=== PATIENT | female | born 1940 | race Caucasian/White ===

== ENCOUNTER 2016-11-14 12:18 | Day surgery (SDC) | payer MEDICARE, OTHER ==
[~2016-11-14 12:18] MED LIST: Lactated Ringers 1,000 ML IV SCH; Sodium Chloride 0.9% 10 ML Syringe FLUSH PRN; Sodium Chloride 0.9% 2.5 ML Syringe FLUSH PRN
--- NOTE | 2016-11-14 14:00 | PCM.PREANE ---
Preanesthetic Assessment - Anesthesia/Transfusion/Family Hx Anesthesia History: Prior Anesthesia Without Reaction Family History of Anesthesia Reaction: No Transfusion History: No Prior Transfusion(s) - Review of Systems General: No Symptoms Pulmonary: No Symptoms Cardiovascular: No Symptoms Neurological: No Symptoms Other: Reports: None - Physical Assessment NPO Status Date: 11/13/16 O2 Sat by Pulse Oximetry: 97 Respiratory Rate: 16 Vital Signs: Last Vital Signs Temp 36.6 C 11/14/16 13:27 Pulse 63 11/14/16 13:27 Resp 16 11/14/16 13:27 BP 176/84 H 11/14/16 13:27 Pulse Ox 97 11/14/16 13:27 Height: 1.6 m Weight: 57.606 kg ASA Class: 3 Mental Status: Alert & Oriented x3 Airway Class: Mallampati = 2 Dentition: Reports: Dentures, Partial ROM/Head Extension: Full Lungs: Clear to Auscultation, Normal Respiratory Effort Cardiovascular: Regular Rate, Regular Rhythm - Allergies Allergies/Adverse Reactions: Allergies Allergy/AdvReac Type Severity Reaction Status Date / Time No Known Allergies Allergy Verified 12/30/15 00:34 - Acknowledgements Anesthesia Type Planned: MAC Pt an Appropriate Candidate for the Planned Anesthesia: Yes Alternatives and Risks of Anesthesia Discussed w Pt/Guardian: Yes Pt/Guardian Understands and Agrees with Anesthesia Plan: Yes Additional Comments: has CAD, s/p coronary and subclavian art stents placed in 2003, stopped plavix 7 day ago, off aspirin x 1-2 wk. PMH: also smoker and htn. PreAnesthesia Questionnaire HEENT History: Reports: Epistaxis, Other (See Below) Other HEENT History: wears glasses, top denture and bottom partial Cardiovascular History: Reports: Hypertension, Stents Gastrointestinal History: Reports: GERD, Hiatal Hernia Genitourinary History: Reports: None FAMILY CENTERED SPECIALIST History: Reports: - Infectious Disease History Infectious Disease History: Reports: Chicken Pox - Past Surgical History Head Surgeries/Procedures: Reports: None Cardiovascular Surgical History: Reports: Coronary Artery Stent - SUBSTANCE USE Smoking Status *Q: Current Every Day Smoker Tobacco Use Within Last Twelve Months: Cigarettes Recreational Drug Use History: No - HOME MEDS Home Medications: Home Meds Enalapril [Vasotec] 20 mg PO BID 12/30/15 [History] Metoprolol Tartrate [Lopressor] 50 mg PO BID 12/30/15 [History] Clopidogrel [Plavix] 75 mg PO DAILY 11/11/16 [History] Omeprazole 20 mg PO DAILY 11/11/16 [History] Psyllium Husk [Metamucil] 1 dose PO ASDIRECTED PRN 11/11/16 [History] - CURRENT (IN HOUSE) MEDS Current Meds: Current Medications Lactated Ringer's (Ringers, Lactated) 1,000 mls @ 125 mls/hr IV ASDIRECTED ALENA Last Admin: 11/14/16 13:28 Dose: 125 mls/hr Sodium Chloride (Saline Flush) 10 ml FLUSH ASDIRECTED PRN PRN Reason: Keep Vein Open Sodium Chloride (Saline Flush) 2.5 ml FLUSH ASDIRECTED PRN PRN Reason: Keep Vein Open
--- NOTE | 2016-11-14 15:33 | PCM.OPNOTE ---
- General Post-Op/Procedure Note Date of Surgery/Procedure: 11/14/16 Operative Procedure(s): EGD Findings: Hiatal hernia and widely patent LES Pre Op Diagnosis: Abdominal pain Post-Op Diagnosis: Hiatal hernia Anesthesia Technique: NATA Primary Surgeon: Jayla Gregorio Condition: Good
--- NOTE | 2016-11-14 15:41 | PCM48HPAN ---
Post Anesthesia Note - EVALUATION WITHIN 48HRS OF ANESTHETIC Vital Signs in Normal Range: Yes Patient Participated in Evaluation: Yes Respiratory Function Stable: Yes Airway Patent: Yes Cardiovascular Function Stable: Yes Hydration Status Stable: Yes Pain Control Satisfactory: Yes Nausea and Vomiting Control Satisfactory: Yes Mental Status Recovered: Yes
--- NOTE | 2016-11-14 15:41 | PCM.POSTAN ---
POST ANESTHESIA ASSESSMENT - MENTAL STATUS Mental Status: Alert, Oriented - RESPIRATORY Respiratory Status: Respiratory Rate WNL, Airway Patent, O2 Saturation Stable - CARDIOVASCULAR CV Status: Pulse Rate WNL, Blood Pressure Stable - GASTROINTESTINAL GI Status: No Symptoms - POST OP HYDRATION Hydration Status: Adequate & Stable
[2016-11-14 15:46] VITALS: BP 121/63
--- NOTE | 2016-11-14 22:10 | OR ---
SURGEON: JAYLA GREGORIO MD DATE OF PROCEDURE: 11/14/2016 PREOPERATIVE DIAGNOSIS: Abdominal pain. POSTOPERATIVE DIAGNOSIS: Hiatal hernia. PROCEDURE PERFORMED: Diagnostic EGD with biopsy. ENDOSCOPIST: Jayla Gregorio MD. INSTRUMENT USED: Olympus endoscope. ANESTHESIA: MAC. EXTENT OF EXAM: To the second portion of duodenum. PREPARATION: Good. LIMITATIONS: None. INDICATIONS FOR EXAMINATION: The patient is a 76-year-old female who presents with epigastric and left upper quadrant pain. The patient and I decided to perform a diagnostic EGD to look for source of her discomfort. We discussed the procedure as well as expected perioperative course. We discussed the risks including bleeding and perforation. The patient verbalized understanding and wishes to proceed. PROCEDURE IN DETAIL: The patient was brought into the endoscopy suite and placed in a beach chair position. A time-out was completed verifying the patient's name, age, date of , allergies, and procedure to be performed. A bite block was placed in the patient's mouth and monitored anesthesia care induced. After adequate sedation was achieved, a well-lubricated endoscope was placed into the patient's mouth and advanced under direct visualization to the second portion of the duodenum. This appeared normal and a photograph was taken. The scope was then fully withdrawn while examining the integrity and anatomy. The scope was then fully withdrawn while examining the color, texture, anatomy, and integrity of the mucosa of the upper GI tract. The patient was found to have a hiatal hernia which had been discovered both on CT and on previous endoscopy. The patient's gastric mucosa appeared normal. Photographs were taken of the second portion the duodenum, the pylorus, and the esophageal hiatus as well as the GE junction. Biopsies were taken of the gastric antrum, body, and fundus and sent to pathology for H. pylori testing. The remainder of the upper GI tract appeared normal without and free of pathology. The scope was removed from the patient, and the procedure was terminated. The patient tolerated the procedure well and was taken to PACU in stable condition. ENDOSCOPIC DIAGNOSIS: Hiatal hernia. RECOMMENDATION: Follow up in clinic in 2 weeks. SARAH TOLLIVER /[id number]
== END 2016-11-14 16:20 | disposition home or self-care (01) ==
LOC: MW.SDS 12:18
PROVIDERS: ATTEND Surgery
PROC: 0DB78ZX Excision of Stomach, Pylorus, Via Natural or Artificial Opening Endoscopic, Diagnostic (ICD-10-PCS; principal; 2016-11-14)
DX: K29.50 Unspecified chronic gastritis without bleeding (principal); K44.9 Diaphragmatic hernia without obstruction or gangrene; I10 Essential (primary) hypertension; I25.10 Atherosclerotic heart disease of native coronary artery without angina pectoris; K21.9 Gastro-esophageal reflux disease without esophagitis; F17.210 Nicotine dependence, cigarettes, uncomplicated; Z95.5 Presence of coronary angioplasty implant and graft; Z79.899 Other long term (current) drug therapy; Z79.02 Long term (current) use of antithrombotics/antiplatelets
CPT/HCPCS: 43239; 88305; 88312; J7120; 00740; 00832